=== PATIENT | male | born 1965 | race African-American/Black ===

== ENCOUNTER 2023-11-16 11:46 | Emergency (ER) | payer MEDICAID ==
[~2023-11-16] VITALS: Ht 180.3 cm; Wt 107.0 kg
[2023-11-16 11:55] VITALS: O2SAT 98
[2023-11-16] MEDS ORDERED: DOCU100T MT (15:30)
[2023-11-16] MEDS ORDERED: TOPUD MT (15:30)
[2023-11-16 15:59] VITALS: BP 138/87; PULSE 85; RESP 16; TEMP 98.9
== END 2023-11-16 15:59 | disposition home or self-care (01) ==
LOC: ER 11:46
DX: K46.9 Unspecified abdominal hernia without obstruction or gangrene (principal); Z98.890 Other specified postprocedural states
CPT/HCPCS: 99282

== ENCOUNTER 2024-12-09 10:11 | Emergency (ER) | payer MEDICAID ==
[~2024-12-09] VITALS: Ht 180.3 cm; Wt 105.0 kg
[~2024-12-09 10:11] MED LIST: DOCU100T MT; TOPUD MT
[2024-12-09 10:13] VITALS: O2SAT 99
[2024-12-09 12:48] VITALS: BP 151/81; PULSE 65; RESP 18; TEMP 36.7; O2SAT 100
== END 2024-12-09 12:54 | disposition home or self-care (01) ==
LOC: ER 10:11
DX: R11.2 Nausea with vomiting, unspecified (principal); R63.8 Other symptoms and signs concerning food and fluid intake; Z88.0 Allergy status to penicillin
CPT/HCPCS: 99283